=== PATIENT | male | born 1975 | race Caucasian/White ===

== ENCOUNTER 2017-05-13 16:37 | Emergency (ER) | payer SELFPAY ==
[~2017-05-13] VITALS: Ht 172.7 cm; Wt 89.8 kg
[2017-05-13 16:44] VITALS: Ht 172.7 cm; Wt 89.8 kg
[2017-05-13 18:53] LABS: CARBON DIOXIDE 32.9 mmol/L (21-32); CHLORIDE SERUM 101 mmol/L (98-107); CREATININE SERUM 0.8 mg/dL (0.7-1.3); GFR1 > 60 mL/min; GLUCOSE SERUM 97 mg/dL (74-106); POTASSIUM SERUM 3.1 mmol/L (3.5-5.1); SODIUM SERUM 139 mmol/L (136-145)
[2017-05-13 18:58] LABS: AMPHETAMINE QUAL UR NONE DETECTED (NEG <=1000)
[2017-05-13 19:06] LABS: ALKALINE PHOSPHATASE 77 U/L (46-116); ALT/SGPT 45 U/L (16-63); AST/SGOT 30 U/L (15-37); BILIRUBIN TOTAL 0.94 mg/dL (0.20-1.00); TOTAL PROTEIN, SERUM 8.1 g/dL (6.4-8.2)
[2017-05-13 19:27] LABS: BASOPHIL % 0.7 % (0-2); PLATELET COUNT 275 x10^3mcL (130-400); RED CELL DISTRIBUTION WIDTH 12.8 % (11.5-14.5)
[2017-05-13 20:12] VITALS: BP 147/97
== END 2017-05-13 20:12 | disposition home or self-care (01) ==
LOC: ED 16:37
PROVIDERS: Emergency Medicine
DX: L04.0 Acute lymphadenitis of face, head and neck (principal); J01.90 Acute sinusitis, unspecified
CPT/HCPCS: J0696; J1100; J7030; Q9967

== ENCOUNTER 2017-05-14 10:10 | Emergency (ER) | payer SELFPAY ==
[2017-05-14 10:38] VITALS: BP 138/75
== END 2017-05-14 13:20 | disposition left against medical advice (07) ==
LOC: ED 10:10
DX: Z53.21 Procedure and treatment not carried out due to patient leaving prior to being seen by health care provider (principal)